=== PATIENT | male | born 1960 | race Caucasian/White ===

== ENCOUNTER 2022-04-27 19:26 | Observation (INO) | payer OTHER ==
[2022-04-27] MEDS ORDERED: Acetaminophen 325 MG TAB PO PRN (21:08)
[2022-04-27 21:25] LABS: Troponin I 0.011 ng/mL (< 0.028)
[2022-04-27] MEDS ORDERED: Nitroglycerin 0.4 MG TAB (25 Tab Bottle) SL PRN (21:27)
[2022-04-27] MEDS ORDERED: Potassium Chloride 20 MEQ TAB PO SCH (21:30)
[2022-04-27] MEDS ORDERED: Zolpidem Tartrate 5 MG TAB PO PRN (21:31)
[2022-04-27 22:02] LABS: Magnesium 1.7 mg/dL (1.6-2.6)
[2022-04-27] MEDS ORDERED: Magnesium 2 GM/50 ML(in water) 1 GM in Premix Bag 1 BAG IVPB SCH (22:15)
[2022-04-27 22:43] VITALS: BMI 34.9
[2022-04-27] MEDS ORDERED: Metoprolol Tartrate 25 MG TAB PO SCH (22:45)
[2022-04-28 00:12] LABS: Hemoglobin A1c 6.3 % (4.0-6.0)
[2022-04-28 00:33] LABS: Troponin I 0.013 ng/mL (< 0.028)
[2022-04-28 05:08] LABS: #Basophils 0.1 thou/uL (0.0-0.2); #Eosinphils 0.4 thou/uL (0.0-0.7); #Monocytes 1.1 thou/uL (0.11-0.59); #Neutrophils 5.7 thou/uL (1.40-6.50); %Basophils 0.8 % (0.0-1.0); %Eosinophils 4.6 % (0.0-10.0); %Lymphocytes 21.3 % (21.0-51.0); %Neutrophils 61.2 % (42.0-75.0); Hemoglobin 14.2 g/dL (14.0-18.0); Mean Corpuscular HGB CONC 33.1 g/dL (32.0-36.0); Mean Corpuscular Hemoglobin 30.9 pg (27.0-31.0); Mean Corpuscular Volume 93.3 fl (78.0-98.0); Platelet Count 249 10x3/uL (130-400); RBC Distribution Width 13.6 % (11.5-14.5); White Blood Cell (WBC) Count 9.2 10x3/uL (4.8-10.8)
[2022-04-28 05:40] LABS: Anion Gap 11 mmol/L (10-20); BUN (Urea Nitrogen) 10 mg/dL (8.4-25.7); Calc. Creatinine Clearance 162 mL/min (70-130); Calcium 8.5 mg/dL (7.8-10.44); Carbon Dioxide 22 mmol/L (23-31); Cardiac Risk 4.6 (Less than 4.5); Chloride 109 mmol/L (98-107); Cholesterol 137 mg/dl (< 200 Desired); Estimated GFR 101; Glucose 105 mg/dL (80-115); HDL Cholesterol 30 mg/dL (>60 Neg Risk); LDL Cholesterol, Calculated 92 mg/dL; Magnesium 1.9 mg/dL (1.6-2.6); Potassium 4.2 mmol/L (3.5-5.1); Sodium 138 mmol/L (136-145); Triglycerides 76 mg/dL (Less than 150)
[2022-04-28] MEDS ORDERED: Levothyroxine Sodium 100 MCG TAB PO SCH (06:00)
[2022-04-28] MEDS ORDERED: Apixaban 5 MG TAB PO SCH (09:00)
[2022-04-28] MEDS ORDERED: Ezetimibe 10 MG TAB PO SCH (09:00)
[2022-04-28] MEDS ORDERED: Metoprolol Tartrate 25 MG TAB PO SCH (09:00)
[2022-04-28] MEDS ORDERED: Aspirin 81 mg Enteric Coated Tablet PO SCH (09:00)
[2022-04-28] MEDS ORDERED: Clopidogrel Bisulfate 75 MG TAB PO SCH (09:00)
[2022-04-28] MEDS ORDERED: Magnesium Oxide 400 MG TAB PO SCH (09:00)
[2022-04-28] MEDS: Sucralfate 1 GM/10 ML UDCUP PO SCH ×3 (09:39→17:36)
[2022-04-28] MEDS ORDERED: Loperamide HCl 2 MG CAP PO SCH (15:00)
[2022-04-28] MEDS ORDERED: Dronedarone HCl 400 MG TAB PO SCH (17:00)
[2022-04-28 18:38] VITALS: BP 123/67; TEMP 97.5
[2022-04-28] MEDS ORDERED: Atorvastatin Calcium 40 MG TAB PO SCH (21:00)
[2022-04-29] MEDS ORDERED: Metamucil PACK PO SCH (09:00)
== END 2022-04-28 18:10 | disposition home or self-care (01) ==
LOC: ERS 19:26 → 2SW 20:38 → INTOOBSV 20:38
PROVIDERS: ADMIT Family Medicine; ATTEND Family Medicine
DX: I48.0 Paroxysmal atrial fibrillation (principal); R73.03 Prediabetes; I11.0 Hypertensive heart disease with heart failure; I50.30 Unspecified diastolic (congestive) heart failure; G47.33 Obstructive sleep apnea (adult) (pediatric); E03.9 Hypothyroidism, unspecified; I25.10 Atherosclerotic heart disease of native coronary artery without angina pectoris; E78.5 Hyperlipidemia, unspecified; Q85.00 Neurofibromatosis, unspecified; I08.8 Other rheumatic multiple valve diseases; I25.2 Old myocardial infarction; Z79.890 Hormone replacement therapy; Z79.899 Other long term (current) drug therapy; Z88.8 Allergy status to other drugs, medicaments and biological substances; Z95.5 Presence of coronary angioplasty implant and graft; Z20.822 Contact with and (suspected) exposure to COVID-19
CPT/HCPCS: 36415; 80048; 80061; 83036; 83735; 85025; 93005; 93306; G0378; J3475; J3490; U0003; U0005